=== PATIENT | male | born 1940 | race Caucasian/White ===

== ENCOUNTER 2023-07-14 21:28 | Emergency (ER) | payer MEDICARE, OTHER, SELFPAY ==
[2023-07-14 21:31] VITALS: BP 178/98
--- NOTE | 2023-07-14 22:13 | ED.GENMED ---
History of Present Illness
<ADONIS Alexander - Last Filed: 07/15/23 00:21>
General
Chief Complaint: Skin Problem
Source: patient
Exam Limitations: none
Time Seen by Provider: 07/14/23 21:58
Nursing documentation reviewed up to this point in time: agreed with
Travel History
Have you had any contact with someone who has COVID-19?: No
Do you have any symptoms of coronavirus? Fever > 100 degrees, chills, cough, shortness of breath, sore throat, loss of taste or smell, muscle aches, or headache?: No
History of Present Illness
History of Present Illness:
82 y/o M presents to ED complaining of rash all over body. He is unsure how long rash has been present but states it has been bothering him more for the past 2 weeks. Reports rash is itchy and spreading to his arms, back and torso from his legs.
Reports the rash is keeping him up at night. He saw dermatology 1 week ago and was prescribed TMC 0.1% cream for dry skin. He has been applying the cream but states it is not helping. He reports he has this skin concern every winter and is better in
warmer months. He reports he takes lukewarm showers and tries to moisturize. He denies new lotions, creams, detergents, foods, or medications.
If applicable-neuro sx onset
Onset of symptoms known: No
Time pt last seen normal is known: No
Past History
<ADONIS Alexander - Last Filed: 07/15/23 00:21>
Past History
Patient has exhibited threatening behavior?: No
Review of Systems
<ADONIS Alexander - Last Filed: 07/15/23 00:21>
Review of Systems
Allergies reviewed?: Yes
Other source history: family
All Other Systems: ROS reviewed and negative except as documented in HPI and ROS
Constitutional: Reports no symptoms
EENT: Reports no symptoms
Respiratory: Reports no symptoms
Cardiac: Reports no symptoms
ABD/GI: Reports no symptoms
: Reports no symptoms
Musculoskeletal: Reports no symptoms
Skin: Reports itching and rash
Neurological: Reports no symptoms
Endocrine: Reports no symptoms
Hematologic/Lymphatic: Reports no symptoms
Psychiatric: Reports no symptoms
Phy Exam
<ADONIS Alexander - Last Filed: 07/15/23 00:21>
General Physical Exam
General Presentation: well appearing and no apparent distress
General age: appears stated age
General Skin: warm, dry and flushed
General Habitus: normal
General Mental: alert
General Hydration: appears well hydrated
Cardiovascular Exam
Cardiovascular Exam: regular rate/rhythm, no edema and no gallop
Pulmonary Exam
Pulmonary Exam: lungs clear, no respiratory distress, no rales, no crackles and no rhonchi
Cough: no cough
Skin Exam
Skin Exam: warm/dry and other (petechia over bilateral legs and L knee, diffuse maculopapular erythematous rash over bilateral arms, trunk and upper back. )
Psychiatric Exam
Psychiatric Exam: normal mood/affect
Course
<ADONIS Alexander - Last Filed: 07/15/23 00:21>
Orders/Labs/Results
Orders:
Orders
07/14/23 22:54
HydrOXYZINE [Atarax] 50 mg PO NOW STA
07/14/23 23:41
Dexamethasone Pf [Decadron] 10 mg PO NOW STA
Vital Signs
Initial and Last Documented VS:
Initial Vital Signs
Temp Pulse Resp BP Pulse Ox
97.8 F 90 20 178/98 98
07/14/23 21:31 07/14/23 21:31 07/14/23 21:31 07/14/23 21:31 07/14/23 21:31
Last Documented Vital Signs
Temp Pulse Resp BP Pulse Ox
97.8 F 85 16 159/93 96
07/14/23 21:31 07/15/23 01:19 07/15/23 01:19 07/15/23 01:19 07/15/23 01:19
<Alvin Lerma DO - Last Filed: 07/15/23 07:19>
Orders/Labs/Results
Orders:
Orders
07/14/23 22:54
HydrOXYZINE [Atarax] 50 mg PO NOW STA
07/14/23 23:41
Dexamethasone Pf [Decadron] 10 mg PO NOW STA
Vital Signs
Initial and Last Documented VS:
Initial Vital Signs
Temp Pulse Resp BP Pulse Ox
97.8 F 90 20 178/98 98
07/14/23 21:31 07/14/23 21:31 07/14/23 21:31 07/14/23 21:31 07/14/23 21:31
Last Documented Vital Signs
Temp Pulse Resp BP Pulse Ox
97.8 F 85 16 159/93 96
07/14/23 21:31 07/15/23 01:19 07/15/23 01:19 07/15/23 01:19 07/15/23 01:19
<Alvin Lerma DO - Last Filed: 07/15/23 07:19>
*Pulse Oximetry
Patient hypoxic: no
*Critical Care Note
Total Time (30-74mins, 75-104mins- exclusive of procedures): Not Applicable
<ADONIS Alexander - Last Filed: 07/15/23 00:21>
Update Note
Update Note:
23:33 Atarax 50mg given at 22:55. Patient reports he is still mildly itchy. Stable, in no acute distress.
00:21 Given Decadron. Reports still itchy but better than before. In no acute distress.
ED Attending Note
<ADONIS Alexander - Last Filed: 07/15/23 00:21>
-
Portions of this chart may have been created with voice recognition software.� Occasional wrong word or��sound alike� substitutions may have occurred due to the inherent limitations of voice recognition software.
<Alvin Lerma DO - Last Filed: 07/15/23 07:19>
ED Attending Note
Patient seen and examined by attending physician: Yes
I performed the substantive portion of visit, reviewed & personally made and approve the management plan that is documented in note by myself or FREDDIE.: Yes
ED Attending Note:
Pleasant 82-year-old male presents to the emergency department complaining of a rash throughout his body. Patient was recently seen at dermatology who prescribed triamcinolone for dry skin. Patient states that he has been using the triamcinolone
but has become very itchy. Patient denies fever, chills, nausea or vomiting. Patient was seen in conjunction with the PA student. I have reviewed and agree with the history and treatment plan presented. On my independent physical exam, patient
is awake, alert, and oriented x3, minimal acute distress. Some erythema that is blanching. No petechiae present. Plan is oral steroids and Atarax.
07/15/2023 0130 AM: Update, patient feeling much better. He still some itching but he does have some relief. Will be discharged home.
Discharge Plan
Departure
Patient Disposition: Home (Routine Discharge)
Date of Disposition: 07/15/23
Time of Disposition: 01:31
Patient with high blood pressure during this ER visit?: Yes
Discharge Problem:
Allergic reaction, Skin rash
Instructions: Skin Rash (DC), Allergic Reaction ED, BLOOD PRESSURE
Prescriptions:
New
hydroxyzine HCl 25 mg tablet
25 mg PO BID PRN (Reason: itching) Qty: 14 0RF
Referrals:
UNKNOWN - PT DOES,NOT KNOW [Family Provider] -
Activity Restrictions/Additional Instructions:
It was a pleasure meeting you and taking part in your care. We hope for your continued healing and wellness.
Please read discharge instructions in their entirety. However, they are for general education and may not describe your exact diagnosis at discharge. Information on your ER visit and medical conditions were discussed with you along with appropriate
follow up information...
If indicated, please take your medications as instructed and indicated on discharge paperwork.
Please schedule a follow up appointment as directed. Call to schedule an appointment
Please return to the emergency department with ANY change in, persisting, or worsening of symptoms. If any of your symptoms do not improve, or persist, or become more severe within 6-12 hours, please return to the emergency department for further
care.
Please return to the emergency department if you develop a headache, neck pain/stiffness, fever greater than 100.4F, chest pain, shortness of breath, persistent nausea, vomiting, slurred speech, difficulty walking, numbness/tingling, weakness, signs
of infection or any other symptoms that are worrisome to you.
If you have any questions or concerns please do not hesitate to call the Hospital at or E-mail me directly at [email or web address]
Interventions
Interventions:
*Risk Screen - Suicide Last Done: 07/14/23 21:31
*General Assessment Last Done: 07/14/23 21:31
*Neglect/Abuse Screening Last Done: 07/14/23 21:31
ED- Fall Risk Assessment Last Done: 07/14/23 21:31
*ED COVID-19 Vaccine History Last Done: 07/14/23 21:31
*Nursing Disposition Last Done: 07/15/23 01:42
ED-Skin Assessment Last Done: 07/14/23 23:02
Discharge Date and Time
Discharge Date/Time: 07/15/23 01:42
[2023-07-14] MEDS: ATARAX 50 MG PO (22:59)
[2023-07-14] MEDS: DECADRON 10 MG PO (23:48)
[2023-07-14 23:52] VITALS: BP 168/102
[2023-07-15 01:19] VITALS: BP 159/93
== END 2023-07-15 01:42 | disposition home or self-care (01) ==
LOC: EMR 21:28
PROVIDERS: EMERGENCY PHYSICIAN Student in an Organized Health Care Education/Training Program
DX: R21 Rash and other nonspecific skin eruption (principal); T78.40XA Allergy, unspecified, initial encounter; R03.0 Elevated blood-pressure reading, without diagnosis of hypertension
CPT/HCPCS: 99283